=== PATIENT | female | born 1950 | race Caucasian/White ===

== ENCOUNTER 2019-05-11 | Emergency (ER) | payer MEDICARE ==
[2019-05-11] MEDS ORDERED: LOPRESSOR25 MG PO (03:35)
[2019-05-11] MEDS ORDERED: LIPITOR20 MG PO (03:35)
[2019-05-11] MEDS ORDERED: BRILINTA90 MG PO (03:35)
[2019-05-11] MEDS ORDERED: PRINIVIL5 MG PO (03:35)
[2019-05-11] MEDS ORDERED: ASPIRINCHW 81MG PO (03:36)
[2019-05-11] MEDS ORDERED: AMOXICILLIN500 MG PO (03:45)
== END 2019-05-11 04:04 | disposition home or self-care (01) ==
DX: K02.9 Dental caries, unspecified (principal); K04.7 Periapical abscess without sinus; M84.68XA Pathological fracture in other disease, other site, initial encounter for fracture